=== PATIENT | female | born 1995 | race Caucasian/White ===

== ENCOUNTER 2023-02-01 09:49 | Inpatient (IN) ==
--- NOTE | 2023-02-01 09:54 | Labor Progress Brief Note ---
Date of Service February 01, 2023 Subjective Pt with c/o ctx Q4min, painful. No ROM, no VB, good FM. Assessment & Plan (1) Normal labor: Coding Diagnoses Normal labor O80; Z37.9
[2023-02-01] MEDS ORDERED: LIDOCAINE 1% LOCAL 20 ML VIAL INFIL PRN (12:42)
--- NOTE | 2023-02-01 12:50 | History & Physical Report ---
Date of Service February 01, 2023 Assessment & Plan (1) Normal labor: Plan: Jeni is a 27-year-old currently at 39 weeks 1 day gestational age. Early labor. 1. Fetus: Cat 1 2. Labor: Progressing. Admit and will AROM when appropriate 3. GBS negative 4. Vitals within normal limits (2) with 39 completed weeks gestation: History of Present Illness Primary Care Provider: Enriqueta Arreola DO Jeni is a 27-year-old currently at 39 weeks 1 day gestational age. Presents in early labor. Patient denying vaginal bleeding or leakage of fluid. Reporting normal movement. has been uncomplicated to date. OB Labs: Blood Type O Positive 07/17/22 Antibody Screen NEGATIVE 07/17/22 Hemoglobin 9.9 g/dl (12.0-16.0) L 11/20/22 Hematocrit 29.2 % (37.0-47.0) L 11/20/22 Mean Corpuscular Volume 81.6 fL (80.0-100.0) 07/17/22 Platelet Count 258 K/uL (130-400) 07/17/22 Rubella IgG Antibody Immune (Immune) 07/17/22 Rapid Plasma Reagin Nonreactive (Nonreactive) 07/17/22 Hepatitis B Surface Antigen. NON-REACTIVE (NON-REACTIVE) 07/17/22 Hepatitis C Antibody (EIA) NON-REACTIVE (NON-REACTIVE) 07/17/22 HIV (1&2) Ag and Ab Confirmation NON-REACTIVE (NON-REACTIVE) 07/17/22 Glucose 1 Hour 50 gm Load 108 mg/dl (70-130) 11/20/22 OB Optional Labs: Chlamydia trachomatis RNA Not Detected (NotDetected) 07/17/22 Neisseria gonorrhoeae RNA Not Detected (NotDetected) 07/17/22 Thyroid Stimulating Hormone (TSH) 2.330 uIu/ml (0.300-4.500) 04/25/20 Labs Reviewed: cf/sma declines--smp cfDNA low risk--smp declines afp Allergies Allergy/AdvReac Type Severity Reaction Status Date / Time amoxicillin Allergy hives Verified 02/01/23 10:04 Home Medications Medication Instructions Recorded Confirmed Type docusate sodium 50 mg capsule 50 mg PO DAILY 01/31/23 02/01/23 History escitalopram oxalate 20 mg tablet 20 mg PO DAILY 01/31/23 02/01/23 History (Lexapro) vits no.124-ferrous fum 1 tab PO DAILY 01/31/23 02/01/23 History 27 mg iron-folic acid 800 mcg tablet ( Vitamin) ferrous sulfate 325 mg (65 mg 325 mg PO DAILY 02/01/23 02/01/23 History iron) tablet (iron) Patient History Medical History Anxiety Depression Surgical History [place] teeth extracted (~2012) Family History Grandmother (Paternal) Diabetes Father Cancer Mother Thyroid disease Social History (Updated 07/06/22 @ 17:12 by Halima Quinn) Smoking Status: Never smoker Do You Dip or Chew Tobacco: No; Hx Alcohol Use: No Hx Substance Use: No Preferred Language: Fijian Communication Ability: Effective Oyster Farmer Required: No Beliefs That Will Affect Care: None marital status: marital status details: William (27) [phone] Current Living Situation: Spouse Current Living Situation Comment: lives with spouse, 3 dogs. current occupational status: employed current occupation: [employer] How many Children do You have: 0 Feels Safe at Home: Yes Safety Concerns: Feels Safe At This Time Do you think of yourself as: straight/heterosexual Gender Identity: Female Physical Exam Constitutional: WD/WN, vitals as above Genitourinary: normal external appearance Manual OB Exam: + cervical dilation (2.5), + cervical effacement 80% and + station -2 OB Exam Monitor Tracing: + external FHT monitor used, + external uterine monitor used, + category I and + normal FHT variability Results & Data Vital Signs (Past 12 Hours) Vital Signs Temp Pulse Resp BP 02/01/23 10:10 36.9 C 76 18 117/66 02/01/23 09:59 76 117/66 Coding Level of Care Code None Diagnoses Normal labor O80; Z37.9 with 39 completed weeks gestation Z3A.39
[2023-02-01] MEDS ORDERED: OXYTOCIN 30 UNITS/500 ML BAG IV PRN ×3 (12:57→23:56)
[2023-02-01 13:14] LABS: Hematocrit (blood only) 36.3 % (37.0-47.0); Hemoglobin 12.4 g/dl (12.0-16.0); Mean Corpuscular Hemoglobin 28.4 pg (25.0-34.0); Mean Corpuscular Hgb Conc 34.2 g/dL (32.0-36.0); Mean Corpuscular Volume 83.1 fL (80.0-100.0); Mean Platelet Volume 11.7 fL (9.4-12.4); Platelet Count 213 K/uL (130-400); RDW Coefficient of Variation 14.1 % (11.5-14.5); RDW Standard Deviation 42.7 fL (36.4-46.3); Red Blood Count 4.37 M/uL (4.20-5.40); White Blood Count 10.28 K/ul (4.8-10.8)
[2023-02-01] MEDS: LACTATED RINGER'S 1,000 ML IV PRN ×2 (13:57→15:26)
--- NOTE | 2023-02-01 14:28 | Anesthesiology Consultation ---
Date of Service February 01, 2023 Assessment & Plan Chart Review Chart Review: Patient NOT seen in Pre Admission Testing and Acceptable Risk for Labor Epidural Consults Requested none ASA ASA2 Proposed Anesthesia Anesthesia Type: Labor Epidural Risk / Benefits Reviewed With: PT / POA / Parent / Guardian, Accepts Plan and Informed Consent Obtained History Height/Weight Height: 5 ft 5 in Weight: 85.275 kg Allergies Allergy/AdvReac Type Severity Reaction Status Date / Time amoxicillin Allergy hives Verified 02/01/23 10:04 Medications Home Medications Medication Instructions Recorded Confirmed Last Taken docusate sodium 50 mg capsule 50 mg PO DAILY 01/31/23 02/01/23 01/23/23 escitalopram oxalate 20 mg tablet 20 mg PO DAILY 01/31/23 02/01/23 02/01/23 06:30 (Lexapro) vits no.124-ferrous fum 1 tab PO DAILY 01/31/23 02/01/23 02/01/23 06:30 27 mg iron-folic acid 800 mcg tablet ( Vitamin) ferrous sulfate 325 mg (65 mg 325 mg PO DAILY 02/01/23 02/01/23 02/01/23 06:30 iron) tablet (iron) Active Medications Generic Name Dose Route Start Last Admin Trade Name Freq PRN Reason Stop Dose Admin Lactated Ringer's 1,000 mls @ 125 mls/hr 02/01/23 12:57 02/01/23 13:57 Lr IV 02/03/23 12:56 999 mls/hr .Q8H PRN Administration L&D Protocol Protocol Past Medical History Medical History Anxiety Depression Exercise / Class Metabolic Activity II 4-5 Yardwork/Stairs/Walk up hill Past Family History Family History Grandmother (Paternal) Diabetes Father Cancer Mother Thyroid disease Past Surgical History Surgical History [place] teeth extracted (~2012) Past Anesthesia History No Hx of Anesthesia Complications and No Family Hx of Anesthesia Complications History of PONV No Hx of PONV and No Hx of Motion Sickness Social History Smoking Status: Never smoker Do You Dip or Chew Tobacco: No Hx Alcohol Use: No Hx Substance Use: No substance use type: does not use Physical Exam Vital Signs Last Vital Signs Temp 36.9 C 02/01/23 10:10 Pulse 76 02/01/23 10:10 Resp 18 02/01/23 10:10 BP 117/66 02/01/23 10:10 ENMT Mouth: no dentition abnormality Thyromental Distance: > or= 3.5 Finger Breadths Mallampati Class: II Neck normal visual inspection Respiratory normal respiratory effort Auscultation: lungs clear to auscultation bilaterally Cardiovascular Rate/Rhythm: regular rate and regular rhythm Psychiatric Orientation: alert Testing Laboratory Results 02/01/23 12:49
[2023-02-01] MEDS ORDERED: ePHEDrine sulfate 50 MG/ML AMP IV PRN (14:29)
[2023-02-01] MEDS ORDERED: ONDANSETRON INJ 2 MG/ML 2 ML VIAL IV PRN (14:29)
[2023-02-01] MEDS ORDERED: diphenhydrAMINE 50 MG/ML VIAL IV PRN (14:29)
[2023-02-01] MEDS ORDERED: NALOXONE HCL 0.4 MG/1 ML VIAL/CARP IV PRN (14:29)
[2023-02-01] MEDS ORDERED: BUPIVACAINE 0.25% PF 30 ML VIAL EPI STA (14:29)
[2023-02-01] MEDS ORDERED: LIDOCAINE 2% MPF LOCAL 5 ML VIAL EPI PRN (14:29)
[2023-02-01] MEDS ORDERED: fentaNYL citrate PF 100 MCG/2 ML VIAL EPI STA (14:29)
[2023-02-01] MEDS ORDERED: LIDOCAINE 2%/EPINEPHRINE 1:200,000 20 ML PF EPI STA (14:29)
[2023-02-01] MEDS ORDERED: SODIUM CHLORIDE 0.9% PF INJ 10 ML VIAL EPI STA (14:29)
[2023-02-01] MEDS ORDERED: NALBUPHINE HCL INJ 10 MG/ML AMP IV PRN (14:29)
[2023-02-01] MEDS ORDERED: SODIUM CHLORIDE 0.9% PF INJ 10 ML VIAL EPI PRN (14:29)
[2023-02-01] MEDS ORDERED: NALOXONE HCL 1 MG in SODIUM CHLORIDE 0.9% 1000ML 1,000 ML IV PRN (14:29)
[2023-02-01] MEDS ORDERED: fentaNYL citrate PF 100 MCG/2 ML VIAL EPI PRN (14:29)
[2023-02-01] MEDS ORDERED: BUPIVACAINE 0.25% PF 30 ML VIAL EPI PRN (14:29)
[2023-02-01] MEDS ORDERED: fentaNYL 2MCG/ML ROPIVACAINE 1.25MG/ML 100 ML BAG EPI PRN (14:29)
[2023-02-01] MEDS ORDERED: ROPIVACAINE 0.5% PF 5 MG/ML 20 ML VIAL EPI PRN (14:29)
[2023-02-01] MEDS ORDERED: BUPIVACAINE 0.25% PF 30 ML VIAL ONE (14:50)
[2023-02-01] MEDS ORDERED: fentaNYL citrate PF 100 MCG/2 ML VIAL ONE (14:50)
[2023-02-01] MEDS ORDERED: SODIUM CHLORIDE 0.9% PF INJ 10 ML VIAL ONE (14:50)
[2023-02-01] MEDS ORDERED: ePHEDrine sulfate 50 MG/ML AMP ONE (14:50)
[2023-02-01] MEDS ORDERED: LIDOCAINE 2%/EPINEPHRINE 1:200,000 20 ML PF ONE (14:50)
[2023-02-01] MEDS ORDERED: fentaNYL 2MCG/ML ROPIVACAINE 1.25MG/ML 100 ML BAG EPI ONE (14:51)
--- NOTE | 2023-02-01 15:25 | Labor Progress Brief Note ---
Date of Service February 01, 2023 Subjective Reason For Note: Routine Evaluation Assessment & Plan (1) Normal labor: Plan: Jeni is a 27-year-old currently at 39 weeks 1 day gestational age. Early labor. 1. Fetus: Cat 1 2. Labor: Progressing. AROM clr 3. GBS negative 4. Vitals within normal limits (2) with 39 completed weeks gestation: Admission and Anticipated Discharge Date Admission Date: February 01, 2023 Physical Exam Genitourinary: Manual OB Exam: + cervical dilation (3.5), + cervical effacement 80%, + station -2 and + amniotic fluid clear OB Exam Monitor Tracing: + external FHT monitor used, + external uterine monitor used, + category I and + normal FHT variability Results & Data Vital Signs (Past 12 Hours) Vital Signs Temp Pulse Resp BP Pulse Ox 02/01/23 10:10 36.9 C 76 18 117/66 02/01/23 15:19 100 02/01/23 15:19 79 02/01/23 15:14 100 02/01/23 15:14 68 02/01/23 15:09 100 02/01/23 15:09 66 02/01/23 15:09 99/58 L 02/01/23 15:08 64 02/01/23 15:08 99/58 L 02/01/23 15:06 66 02/01/23 15:06 99/57 L 02/01/23 15:04 100 02/01/23 15:04 71 02/01/23 15:04 98/54 L 02/01/23 15:02 66 02/01/23 15:02 103/59 L 02/01/23 15:00 66 02/01/23 15:00 98/59 L 02/01/23 14:59 100 02/01/23 14:59 68 02/01/23 14:58 66 02/01/23 14:58 98/60 L 02/01/23 14:57 65 02/01/23 14:57 95/58 L 02/01/23 14:56 71 02/01/23 14:56 89/53 L 02/01/23 14:55 84 L 02/01/23 14:55 70 02/01/23 14:54 100 02/01/23 14:54 71 02/01/23 14:54 116/74 02/01/23 14:52 66 02/01/23 14:52 109/71 02/01/23 14:50 65 02/01/23 14:50 122/68 02/01/23 14:49 100 02/01/23 14:49 77 02/01/23 14:48 76 02/01/23 14:48 117/78 02/01/23 14:46 67 02/01/23 14:46 112/77 02/01/23 14:44 100 02/01/23 14:44 65 02/01/23 14:44 66 02/01/23 14:44 123/81 02/01/23 14:42 58 L 02/01/23 14:42 120/80 02/01/23 14:40 66 02/01/23 14:40 122/70 02/01/23 14:39 100 02/01/23 14:39 60 02/01/23 14:38 58 L 02/01/23 14:38 139/80 02/01/23 14:35 93 02/01/23 14:35 76 02/01/23 14:34 99 02/01/23 14:34 55 L 02/01/23 14:34 123/78 02/01/23 09:59 76 117/66 Coding Level of Care Code None Diagnoses Normal labor O80; Z37.9 with 39 completed weeks gestation Z3A.39
--- NOTE | 2023-02-01 22:37 | Delivery Summary ---
Vaginal Delivery Summary Date of Service February 01, 2023 Vaginal Delivery Summary DIAGNOSES: 1. Hicks intrauterine at 39w1d gestation. 2. Spontaneous onset of labor. 3. Group B Streptococcus Neg. PROCEDURE: Spontaneous vaginal delivery without laceration. SURGEON: Manju Dunne MD. MILK OF LIME SLAKER: None. ESTIMATED BLOOD LOSS: 250 mL. COMPLICATIONS: None. PLACENTA: Spontaneous and intact with a 3-vessel cord. DISPOSITION: Stable to labor and delivery. DESCRIPTION: The patient pushed well and brought the head to in DOA position. The infant's head was allowed to deliver with contraction force and no further active pushing, with the perineum protected during this time. There was no nuchal cord. The left shoulder was anterior. The shoulders and body delivered without any difficulty, and the infant was placed on the maternal abdomen. It was vigorous and moving all extremities, and making respiratory efforts. The cord was doubly clamped by the MD and then cut by the FOB. The placenta delivered spontaneously and was noted to be intact and with a 3VC. The cervix, vagina and perineum were examined and were found to have an abrasion in the posterior L vagina which was hemostatic, and a [id number] hematoma in the L labium which was observed over several minutes and did not further enlarge; no suture repair was indicated or performed. The bladder was emptied of urine via straight cath for a large unmeasured quantity of clear yellow urine. The fundus was firm and lochia minimal immediately after delivery. [facility] Vaginal Delivery Charge Vaginal Delivery Codes: 04890 global code for the antepartum, delivery, and post-
--- NOTE | 2023-02-01 23:33 | Anesthesia Procedure Note ---
Date of Service February 01, 2023 Anesthesia Post Epidural Note Vital Signs Vital Signs: Temp Pulse Resp BP Pulse Ox 37.1 C 86 18 125/65 88 L 02/01/23 21:24 02/01/23 23:20 02/01/23 21:24 02/01/23 23:20 02/01/23 22:34 Pain Intensity Abdomen: Pain Intensity: 8 Notes Mental Status: alert / awake / arousable Nausea / Vomiting: adequately controlled Pain: adequately controlled Airway Patency, RR, SpO2: stable & adequate BP & HR: stable & adequate Hydration State: stable & adequate Neuraxial Anesthesia: was administered and sensory block is resolving Anesthetic Complications: no major complications apparent and Pt Satisfied with anesthetic care Epidural: Removed without complications and With tip intact
[2023-02-01] MEDS ORDERED: BENZOCAINE 20% AER SPR 82.5 GM CAN EXT PRN (23:56)
[2023-02-01] MEDS ORDERED: ACETAMINOPHEN 325 MG TAB PO PRN (23:56)
[2023-02-01] MEDS ORDERED: oxyCODONE/ACETAMINOPHEN 5mg/325mg TAB PO PRN (23:56)
[2023-02-01] MEDS ORDERED: DIPHTHERIA/TETANUS/PERTUSSIS Vaccine (Tdap, Age 7+yrs) 0.5mL SYR/VL IM ONE (23:56)
[2023-02-01] MEDS ORDERED: bisacodyL 10 MG SUPP PR PRN (23:56)
[2023-02-01] MEDS ORDERED: HYDROCORTISONE ACETATE 25 MG SUPP PR PRN (23:56)
[2023-02-02 06:15] LABS: Hematocrit (blood only) 34.4 % (37.0-47.0); Hemoglobin 11.5 g/dl (12.0-16.0); Mean Corpuscular Hemoglobin 28.3 pg (25.0-34.0); Mean Corpuscular Hgb Conc 33.4 g/dL (32.0-36.0); Mean Corpuscular Volume 84.5 fL (80.0-100.0); Mean Platelet Volume 11.8 fL (9.4-12.4); Platelet Count 213 K/uL (130-400); RDW Coefficient of Variation 14.1 % (11.5-14.5); RDW Standard Deviation 43.4 fL (36.4-46.3); Red Blood Count 4.07 M/uL (4.20-5.40)
--- NOTE | 2023-02-02 06:23 | Obstetrical Progress Note ---
Date of Service <Mary Huff MD - Last Filed: 02/02/23 06:54> February 02, 2023 Assessment & Plan <Mary Huff MD - Last Filed: 02/02/23 06:54> (1) Spontaneous vaginal delivery: Patient with the above mentioned history and findings was evaluated at bedside and found awake, alert, oriented in all spheres, afebrile, and in no acute distress. Overall, patient is doing well clinically and progressing well. Will continue current post care. Will encourage ambulation as tolerated and will resume regular diet. Will continue monitoring pain levels and management with current regimen. Patient is encouraged to breastfeed and to notify changes in normal lochia such as excessive bleeding (using more than 1 pad per hour), foul smell, or purulent appearance. Should she remain clinically and hemodynamically stable, will consider discharge tomorrow. All questions were answered. <Manju Dunne MD - Last Filed: 02/04/23 15:53> (1) Spontaneous vaginal delivery: Subjective <Mary Huff MD - Last Filed: 02/02/23 06:54> Jeni is a 27 y/o female who is now PPD # 1 following at 39 1/7 weeks. Reports feeling well overall this morning. Refers mild abdominal cramping & 2/10 pain well managed on analgesics. Voiding spontaneously without issues. Tolerating meals overnight and able to ambulate some.She is passing gas but has not had a bowel movement yet. Some persistent lochia with some improvement this morning. Breast feeding. Blood type is O positive and Hb today is 11.5. She is GBS negative and Rubella immune. Constitutional: no fever, no chills or no sweats Denies shortness of breath or difficulty breathing Cardiovascular: no chest pain or no palpitations Breast: no breast pain Genitourinary (female): no dysuria Neurologic: no headache(s) Denies changes in vision Physical Exam <Mary Huff MD - Last Filed: 02/02/23 06:54> General: Alert. Oriented to person, time, and place. Afebrile. No acute distress. Eyes: pupils equal and reactive to light bilaterally, extraocular movements intact. Cardiac: Regular rate and rhythm, no murmurs/rubs/gallops. Respiratory: Clear to auscultation bilaterally a/p, no wheezes/rales/rhonchi. No increased work of breathing. Symmetrical chest rise. No respiratory distress. Abdomen: Soft, nontender, nondistended. Bowel sounds present. Uterus: Uterine fundus firm, mildly tender, and palpable 1 cm below umbilicus. Lower Extremities: mild bilateral lower extremity swelling. No deep calf pain. Navjot's negative bilaterally. Psych: Euthymic affect. Mood and affect congruence. Regular speech rate and content. Results & Data <Mary Huff MD - Last Filed: 02/02/23 06:54> Vital Signs (Past 12 Hours) Vital Signs Temp Pulse Pulse Resp BP BP Pulse Ox 02/02/23 04:15 36.6 C 58 L 16 103/65 97 02/02/23 00:45 36.6 C 73 16 114/73 97 02/02/23 00:35 18 02/02/23 00:05 18 02/01/23 23:35 18 02/01/23 23:20 18 02/01/23 23:05 18 02/01/23 22:50 18 02/01/23 22:35 18 02/02/23 00:32 65 102/57 L 02/02/23 00:20 68 93/54 L 02/02/23 00:05 68 103/53 L 02/01/23 23:50 73 02/01/23 23:50 113/55 L 02/01/23 23:35 82 02/01/23 23:35 117/58 L 02/01/23 23:20 86 02/01/23 23:20 125/65 02/01/23 23:05 72 02/01/23 23:05 116/58 L 02/01/23 22:58 78 02/01/23 22:58 124/68 02/01/23 22:35 86 02/01/23 22:35 128/65 02/01/23 22:34 88 L 02/01/23 22:34 30 L 02/01/23 22:29 100 02/01/23 22:29 102 H 02/01/23 22:24 99 02/01/23 22:24 89 02/01/23 22:19 100 02/01/23 22:19 94 H 02/01/23 22:18 93 02/01/23 22:18 107 H 02/01/23 22:14 84 L 02/01/23 22:14 108 H 02/01/23 22:13 92 02/01/23 22:13 86 02/01/23 22:09 93 02/01/23 22:09 112 H 02/01/23 22:07 86 L 02/01/23 22:07 102 H 02/01/23 22:04 100 02/01/23 22:04 100 H 02/01/23 22:01 89 L 02/01/23 22:01 89 02/01/23 21:59 100 02/01/23 21:59 93 H 02/01/23 21:56 88 L 02/01/23 21:56 109 H 02/01/23 21:54 60 L 02/01/23 21:54 108 H 02/01/23 21:51 89 L 02/01/23 21:51 97 H 02/01/23 21:49 99 02/01/23 21:49 96 H 02/01/23 21:44 77 L 02/01/23 21:44 122 H 02/01/23 21:40 118 H 02/01/23 21:40 142/99 H 02/01/23 21:39 89 L 02/01/23 21:39 112 H 02/01/23 21:34 100 02/01/23 21:34 110 H 02/01/23 21:29 95 02/01/23 21:29 76 02/01/23 21:24 18 02/01/23 21:24 37.1 C 18 02/01/23 21:25 70 02/01/23 21:25 131/76 02/01/23 21:24 100 02/01/23 21:24 74 02/01/23 21:19 100 02/01/23 21:19 80 02/01/23 21:14 99 02/01/23 21:14 71 02/01/23 21:13 93 02/01/23 21:13 65 02/01/23 21:11 70 02/01/23 21:11 127/79 02/01/23 21:09 100 02/01/23 21:09 62 02/01/23 21:04 100 02/01/23 21:04 84 02/01/23 21:02 92 02/01/23 21:02 101 H 02/01/23 20:59 100 02/01/23 20:59 71 02/01/23 20:56 67 02/01/23 20:56 112/65 02/01/23 20:54 100 02/01/23 20:54 68 02/01/23 20:49 100 02/01/23 20:49 68 02/01/23 20:44 100 02/01/23 20:44 67 02/01/23 20:41 73 02/01/23 20:41 120/66 02/01/23 20:39 100 02/01/23 20:39 67 02/01/23 20:34 100 02/01/23 20:34 71 02/01/23 20:29 100 02/01/23 20:29 71 02/01/23 20:24 100 02/01/23 20:24 68 02/01/23 20:24 125/64 02/01/23 20:19 100 02/01/23 20:20 92 02/01/23 20:19 67 02/01/23 20:20 71 02/01/23 20:14 100 02/01/23 20:14 67 02/01/23 20:11 68 02/01/23 20:11 115/70 02/01/23 20:09 100 02/01/23 20:09 69 02/01/23 20:04 100 02/01/23 20:04 70 02/01/23 19:59 100 02/01/23 19:59 71 02/01/23 19:56 71 02/01/23 19:56 117/74 02/01/23 19:54 100 02/01/23 19:55 90 02/01/23 19:54 66 02/01/23 19:55 74 02/01/23 19:49 100 02/01/23 19:49 76 02/01/23 19:44 100 02/01/23 19:44 90 02/01/23 19:41 93 02/01/23 19:41 100 H 02/01/23 19:40 68 02/01/23 19:40 125/87 02/01/23 19:39 99 02/01/23 19:39 86 02/01/23 19:34 100 02/01/23 19:34 71 02/01/23 19:29 100 02/01/23 19:29 68 02/01/23 19:25 70 02/01/23 19:25 126/82 02/01/23 19:24 98 02/01/23 19:24 69 02/01/23 19:19 97 02/01/23 19:19 75 02/01/23 19:14 100 02/01/23 19:14 67 02/01/23 19:09 100 02/01/23 19:09 72 02/01/23 19:09 124/76 02/01/23 19:04 99 02/01/23 19:04 70 02/01/23 19:02 91 02/01/23 19:02 76 02/01/23 19:00 18 02/01/23 19:00 36.9 C 18 02/01/23 18:59 100 02/01/23 18:59 79 02/01/23 18:54 99 02/01/23 18:54 69 02/01/23 18:55 66 02/01/23 18:55 121/76 02/01/23 18:49 100 02/01/23 18:49 69 02/01/23 18:44 100 02/01/23 18:44 76 02/01/23 18:39 100 02/01/23 18:39 72 02/01/23 18:39 113/75 02/01/23 18:34 100 02/01/23 18:34 64 02/01/23 18:31 18 02/01/23 18:31 18 02/01/23 18:29 89 L 02/01/23 18:29 69 02/01/23 18:24 100 02/01/23 18:24 67 02/01/23 18:24 114/74 O2 Del Method 02/02/23 04:15 Room Air 02/02/23 00:45 Room Air 02/02/23 00:35 02/02/23 00:05 02/01/23 23:35 02/01/23 23:20 02/01/23 23:05 02/01/23 22:50 02/01/23 22:35 02/02/23 00:32 02/02/23 00:20 02/02/23 00:05 02/01/23 23:50 02/01/23 23:50 02/01/23 23:35 02/01/23 23:35 02/01/23 23:20 02/01/23 23:20 02/01/23 23:05 02/01/23 23:05 02/01/23 22:58 02/01/23 22:58 02/01/23 22:35 02/01/23 22:35 02/01/23 22:34 02/01/23 22:34 02/01/23 22:29 02/01/23 22:29 02/01/23 22:24 02/01/23 22:24 02/01/23 22:19 02/01/23 22:19 02/01/23 22:18 02/01/23 22:18 02/01/23 22:14 02/01/23 22:14 02/01/23 22:13 02/01/23 22:13 02/01/23 22:09 02/01/23 22:09 02/01/23 22:07 02/01/23 22:07 02/01/23 22:04 02/01/23 22:04 02/01/23 22:01 02/01/23 22:01 02/01/23 21:59 02/01/23 21:59 02/01/23 21:56 02/01/23 21:56 02/01/23 21:54 02/01/23 21:54 02/01/23 21:51 02/01/23 21:51 02/01/23 21:49 02/01/23 21:49 02/01/23 21:44 02/01/23 21:44 02/01/23 21:40 02/01/23 21:40 02/01/23 21:39 02/01/23 21:39 02/01/23 21:34 02/01/23 21:34 02/01/23 21:29 02/01/23 21:29 02/01/23 21:24 02/01/23 21:24 02/01/23 21:25 02/01/23 21:25 02/01/23 21:24 02/01/23 21:24 02/01/23 21:19 02/01/23 21:19 02/01/23 21:14 02/01/23 21:14 02/01/23 21:13 02/01/23 21:13 02/01/23 21:11 02/01/23 21:11 02/01/23 21:09 02/01/23 21:09 02/01/23 21:04 02/01/23 21:04 02/01/23 21:02 02/01/23 21:02 02/01/23 20:59 02/01/23 20:59 02/01/23 20:56 02/01/23 20:56 02/01/23 20:54 02/01/23 20:54 02/01/23 20:49 02/01/23 20:49 02/01/23 20:44 02/01/23 20:44 02/01/23 20:41 02/01/23 20:41 02/01/23 20:39 02/01/23 20:39 02/01/23 20:34 02/01/23 20:34 02/01/23 20:29 02/01/23 20:29 02/01/23 20:24 02/01/23 20:24 02/01/23 20:24 02/01/23 20:19 02/01/23 20:20 02/01/23 20:19 02/01/23 20:20 02/01/23 20:14 02/01/23 20:14 02/01/23 20:11 02/01/23 20:11 02/01/23 20:09 02/01/23 20:09 02/01/23 20:04 02/01/23 20:04 02/01/23 19:59 02/01/23 19:59 02/01/23 19:56 02/01/23 19:56 02/01/23 19:54 02/01/23 19:55 02/01/23 19:54 02/01/23 19:55 02/01/23 19:49 02/01/23 19:49 02/01/23 19:44 02/01/23 19:44 02/01/23 19:41 02/01/23 19:41 02/01/23 19:40 02/01/23 19:40 02/01/23 19:39 02/01/23 19:39 02/01/23 19:34 02/01/23 19:34 02/01/23 19:29 02/01/23 19:29 02/01/23 19:25 02/01/23 19:25 02/01/23 19:24 02/01/23 19:24 02/01/23 19:19 02/01/23 19:19 02/01/23 19:14 02/01/23 19:14 02/01/23 19:09 02/01/23 19:09 02/01/23 19:09 02/01/23 19:04 02/01/23 19:04 02/01/23 19:02 02/01/23 19:02 02/01/23 19:00 02/01/23 19:00 02/01/23 18:59 02/01/23 18:59 02/01/23 18:54 02/01/23 18:54 02/01/23 18:55 02/01/23 18:55 02/01/23 18:49 02/01/23 18:49 02/01/23 18:44 02/01/23 18:44 02/01/23 18:39 02/01/23 18:39 02/01/23 18:39 02/01/23 18:34 02/01/23 18:34 02/01/23 18:31 02/01/23 18:31 02/01/23 18:29 02/01/23 18:29 02/01/23 18:24 02/01/23 18:24 02/01/23 18:24 <Manju Dunne MD - Last Filed: 02/04/23 15:53> Co-Signing Physician Notes Resident Physician Supervision Note: I interviewed and examined the patient. Discussed with Dr. Huff and agree with findings and plan as documented in the note. Any exceptions or clarifications are listed here: [ ] Documented By: Manju Dunne MD, FACOG Resident Activity Tracking <Mary Huff MD - Last Filed: 02/02/23 06:54> Resident Involvement: Resident Care Provided Care Provided: OB Delivery
[2023-02-02] MEDS: ESCITALOPRAM OXALATE 20 MG TAB PO SCH (07:47)
[2023-02-02] MEDS: DOCUSATE SODIUM 100 MG CAP PO SCH ×2 (07:47→21:15)
[2023-02-02] MEDS: PRENATAL VITAMIN 1 TAB PO SCH (07:47)
[2023-02-02] MEDS: IBUPROFEN 600 MG TAB PO PRN ×2 (11:36→22:59)
[2023-02-02] MEDS ORDERED: bisacodyL 5 MG TABEC PO SCH (20:00)
[2023-02-03 05:57] LABS: Hematocrit (blood only) 32.3 % (37.0-47.0); Hemoglobin 10.6 g/dl (12.0-16.0)
[2023-02-03] MEDS: PRENATAL VITAMIN 1 TAB PO SCH (07:54)
[2023-02-03] MEDS: IBUPROFEN 600 MG TAB PO PRN (07:54)
[2023-02-03] MEDS: DOCUSATE SODIUM 100 MG CAP PO SCH (07:54)
[2023-02-03] MEDS: ESCITALOPRAM OXALATE 20 MG TAB PO SCH (07:55)
--- NOTE | 2023-02-03 09:49 | Obstetrical Progress Note ---
Date of Service February 03, 2023 Assessment & Plan (1) Encounter for care and examination after delivery: Plan Day 2 status post vaginal delivery. Doing well. Stable for discharge Subjective Ambulation: ambulating normally Voiding: no voiding problems Passing Gas:: Yes Diet Tolerance:: regular diet Lochia:: Moderate Feeding Type:: breast feeding Physical Exam Constitutional WD/WN, vitals as above Respiratory normal respiratory effort; no respiratory distress and no labored breathing Gastrointestinal (Abdomen) Inspection/Auscultation: abdomen normal to inspection; abdomen not distended Percussion/Palpation: abdomen soft; abdomen nontender, no guarding and abdomen not rigid Genitourinary OB Exam Abdomen: + fundal height Fundus: + firm and + relation to umbilicus (Below); not tender or not boggy Results & Data Vital Signs (Past 12 Hours) Vital Signs Temp Pulse Resp BP Pulse Ox O2 Del Method 02/03/23 08:00 36.5 C 66 18 114/77 99 Room Air 02/02/23 23:00 36.5 C 85 18 124/80 99 Room Air
== END 2023-02-03 10:58 | disposition home or self-care (01) | DRG 807 ==
LOC: OPB 09:49 → 4S1 09:50 → 4E2 02-02 01:24

== ENCOUNTER 2025-03-21 01:28 | Inpatient (IN) ==
[2025-03-21] MEDS ORDERED: LIDOCAINE 1% LOCAL 20 ML VIAL INFIL PRN (03:19)
[2025-03-21 03:48] LABS: Hematocrit (blood only) 38.0 % (37.0-47.0); Hemoglobin 12.5 g/dl (12.0-16.0); Mean Corpuscular Hemoglobin 27.0 pg (25.0-34.0); Mean Corpuscular Volume 82.1 fL (80.0-100.0); Platelet Count 189 K/uL (130-400); RDW Standard Deviation 41.9 fL (36.4-46.3); Red Blood Count 4.63 M/uL (4.20-5.40); White Blood Count 9.06 K/ul (4.8-10.8)
[2025-03-21] MEDS: LACTATED RINGER'S 1,000 ML IV PRN (03:49)
[2025-03-21] MEDS ORDERED: NALOXONE HCL 0.4 MG/1 ML VIAL/CARP IV PRN (04:21)
[2025-03-21] MEDS ORDERED: BUPIVACAINE 0.25% PF 30 ML VIAL EPI PRN (04:21)
[2025-03-21] MEDS ORDERED: NALOXONE HCL 1 MG in SODIUM CHLORIDE 0.9% 1,000 ML IV PRN (04:21)
[2025-03-21] MEDS ORDERED: ONDANSETRON INJ 2 MG/ML 2 ML VIAL IV PRN (04:21)
[2025-03-21] MEDS ORDERED: LIDOCAINE 2% MPF LOCAL 5 ML VIAL EPI PRN (04:21)
[2025-03-21] MEDS ORDERED: fentANYL 2 MCG/ML BUPIVacaine 0.125%-NSS 100ML BAG EPI PRN (04:21)
[2025-03-21] MEDS ORDERED: NALBUPHINE HCL INJ 10 MG/ML AMP IV PRN (04:21)
[2025-03-21] MEDS ORDERED: ROPIVACAINE 0.5% PF 5 MG/ML 20 ML VIAL EPI PRN (04:21)
[2025-03-21] MEDS ORDERED: diphenhydrAMINE 50 MG/ML VIAL IV PRN (04:21)
[2025-03-21] MEDS ORDERED: SODIUM CHLORIDE 0.9% PF INJ 10 ML VIAL EPI PRN (04:21)
--- NOTE | 2025-03-21 04:21 | Anesthesiology Consultation ---
Date of Service March 21, 2025 Assessment & Plan ASA ASA2 Proposed Anesthesia Anesthesia Type: Labor Epidural Risk / Benefits Reviewed With: PT / POA / Parent / Guardian, Accepts Plan and Informed Consent Obtained History Height/Weight Height: 5 ft 5 in Weight: 80.286 kg Allergies Allergy/AdvReac Type Severity Reaction Status Date / Time amoxicillin Allergy Intermediate Hives Verified 03/18/25 10:51 Medications Home Medications Medication Instructions Recorded Confirmed Last Taken vits no.124-ferrous fum 1 tab PO DAILY 01/31/23 03/21/25 03/20/25 08:00 27 mg iron-folic acid 800 mcg tablet ( Vitamin) albuterol sulfate 90 mcg/actuation See Rx Instructions inhalation 07/11/23 03/21/25 Unknown aerosol inhaler (Ventolin HFA) .COMPLEX PRN shortness of breath or wheezing #8.5 grams docosahexaenoic acid 300 mg 300 mg PO QPM 09/22/24 03/18/25 09/21/24 capsule (DHA Algal-900) levothyroxine 50 mcg tablet 50 mcg PO DAILYBB #30 tabs 10/19/24 03/21/25 03/20/25 07:00 ferrous sulfate [Iron (ferrous PO DAILY 01/19/25 03/18/25 Unknown sulfate)] escitalopram oxalate 10 mg tablet 15 mg (1.5 x 10 mg) PO DAILY #45 02/03/25 03/18/25 03/20/25 07:00 (Lexapro) tabs ondansetron HCl 4 mg tablet 4 mg PO Q6H PRN nausea and 02/03/25 03/18/25 Unknown vomiting #20 tabs Active Medications Generic Name Dose Route Start Last Admin Trade Name Freq PRN Reason Stop Dose Admin Lactated Ringer's 1,000 mls @ 125 mls/hr 03/21/25 03:19 03/21/25 04:37 Lr IV 03/23/25 03:18 125 mls/hr .Q8H PRN Infusion L&D Protocol Protocol Past Medical History Medical History History of chicken pox Bilateral conjunctivitis Sinusitis Headache Irregular menses Depression Anxiety Dysmenorrhea Migraines Exercise / Class Metabolic Activity II 4-5 Yardwork/Stairs/Walk up hill Past Family History Family History Grandmother (Paternal) Diabetes Father Cancer bone and skin cancer Lung cancer Mother Thyroid disease Grandmother (Maternal) Breast cancer Denies family history of Ovarian cancer Colorectal cancer Past Surgical History Surgical History [place] teeth extracted (~2012) Past Anesthesia History No Hx of Anesthesia Complications and No Family Hx of Anesthesia Complications History of PONV No Hx of PONV and No Hx of Motion Sickness Social History Smoking Status: Never smoker Do You Dip or Chew Tobacco: No Hx Alcohol Use: No Hx Substance Use: No substance use type: does not use Review of Systems denies fever/cough/ colds/ chest pain/ SOB/ JOSÉ MIGUEL denies JOSÉ MIGUEL Physical Exam Vital Signs Last Vital Signs Temp 36.7 C 03/21/25 01:48 Pulse 61 03/21/25 04:52 Resp 18 03/21/25 01:48 BP 112/64 03/21/25 04:52 Pulse Ox 100 03/21/25 04:50 ENMT Mouth: no TMJ abnormality and no dentition abnormality Thyromental Distance: > or= 3.5 Finger Breadths Mallampati Class: II Neck neck extension not limited Respiratory normal respiratory effort; no respiratory distress Auscultation: lungs clear to auscultation bilaterally Cardiovascular Rate/Rhythm: regular rate and regular rhythm Neurologic moves all extremities Psychiatric Orientation: alert and oriented x 3 Testing Laboratory Results 03/21/25 03:33
[2025-03-21] MEDS: BUPIVACAINE 0.25% PF 30 ML VIAL ONE (04:45)
[2025-03-21] MEDS: LIDOCAINE 2%/EPINEPHRINE 1:200,000 20 ML PF ONE (04:45)
[2025-03-21] MEDS: fentANYL 2 MCG/ML BUPIVacaine 0.125%-NSS 100ML BAG ONE (04:46)
[2025-03-21] MEDS: OXYTOCIN 30 UNITS/NSS 30 UNITS/500 ML BAG IV PRN (10:25)
[2025-03-21] MEDS ORDERED: IBUPROFEN 600 MG TAB PO PRN (10:39)
[2025-03-21] MEDS ORDERED: HYDROCORTISONE ACETATE 25 MG SUPP PR PRN (10:39)
[2025-03-21] MEDS ORDERED: OXYTOCIN 30 UNITS/NSS 30 UNITS/500 ML BAG IV PRN (10:39)
--- NOTE | 2025-03-21 11:08 | Delivery Summary ---
Vaginal Delivery Summary Date of Service March 21, 2025 Vaginal Delivery Summary and 1st Degree LAC Progressed to 10 cm dilated, 100% effaced, +2-3 station and pushed over intact perineum with epidural anesthesia delivered a viable female with weight and Apgars pending. Head of the delivered without difficulty quickly followed by shoulders and body. was noted be vigorous soon after delivery and a 1 minute delayed cord clamping was initiated. Cord was then double clamped and cut and remained on maternal abdomen. Cord blood obtained and attention turned to delivery of placenta which delivered intact with three-vessel cord gentle cord traction. Inspection of perineum vagina and cervix there is noted to be a periurethral laceration which was repaired with a single interrupted stitch of 4-0 Vicryl. Needle sponge and instrument counts correct at the completion of the case. Both mother and stable in the immediate postdelivery timeframe. No complications noted and blood loss per QBL. [facility] Vaginal Delivery Charge Delivery Type Details: and 1st Degree LAC
[2025-03-21] MEDS: SODIUM CHLORIDE 0.9% PF INJ 10 ML VIAL ONE (11:34)
[2025-03-21] MEDS: BUPIVACAINE 0.25% PF 30 ML VIAL EPI STA (11:35)
[2025-03-21] MEDS: LIDOCAINE 2%/EPINEPHRINE 1:200,000 20 ML PF EPI STA (11:35)
[2025-03-21] MEDS: SODIUM CHLORIDE 0.9% PF INJ 10 ML VIAL EPI STA (11:35)
[2025-03-21] MEDS: DIPHTHER/TETAN/PERTUS Vaccine (Tdap, Adol/Adult) 0.5mL IM ONE (13:19)
--- NOTE | 2025-03-21 15:44 | Anesthesia Procedure Note ---
Date of Service March 21, 2025 Anesthesia Post Epidural Note Vital Signs Vital Signs: Temp Pulse Resp BP Pulse Ox O2 Del Method 36.6 C 52 L 18 108/67 98 Room Air 03/21/25 14:45 03/21/25 14:45 03/21/25 14:45 03/21/25 14:45 03/21/25 11:26 03/21/25 14:45 Pain Intensity Abdomen: Pain Intensity: 0 Notes Mental Status: alert / awake / arousable Nausea / Vomiting: adequately controlled Pain: adequately controlled Airway Patency, RR, SpO2: stable & adequate BP & HR: stable & adequate Hydration State: stable & adequate Neuraxial Anesthesia: was administered and sensory block is resolving Anesthetic Complications: no major complications apparent and Pt Satisfied with anesthetic care Epidural: Removed without complications and With tip intact
[2025-03-21] MEDS: ACETAMINOPHEN 325 MG TAB PO PRN (19:02)
[2025-03-21] MEDS: BENZOCAINE 20% SPRY 85 APPLN/85 GM CAN EXT PRN (19:06)
[2025-03-21] MEDS: DOCUSATE SODIUM 100 MG CAP PO SCH (20:00)
[2025-03-21 20:40] VITALS: RESP 16
[2025-03-22] MEDS: LEVOTHYROXINE SODIUM 50 MCG TABLET PO SCH (05:37)
[2025-03-22] MEDS ORDERED: ESCITALOPRAM OXALATE 10 MG TAB PO SCH (06:00)
--- NOTE | 2025-03-22 06:17 | Obstetrical Progress Note ---
Date of Service March 22, 2025 Assessment & Plan (1) examination following vaginal delivery: (2) Hypothyroidism during : Plan 29 y/o post- day 1 s/p . Feels well today. Vital signs stable Continue post- care Encourage ambulation and Pain controlled with ibuprofen Hgb stable Discharge home today, follow up with Dr. Eaton in 6 weeks. Admission and Anticipated Discharge Date Admission Date: March 21, 2025 Supervising Physician Co-Signing Physician Notes Patient seen with resident and agree with above findings and plan. Patient doing well and stable for discharge as preferred. Subjective 29 y/o post- day #1 s/p complicated by hypothyroidism during . Ambulation: ambulating normally Voiding: no voiding problems Passing Gas:: Yes Diet Tolerance:: regular diet Lochia:: Small Feeding Type:: breast-feeding Current Pain Level: minimal Resting comfortably this AM in NAD. Denies PARKS, CP, SOB, N/V/D, LE pain/swelling. Review of Systems Review of Systems: All systems reviewed & are unremarkable except as noted in HPI & below Physical Exam Physical Exam: General: patient resting comfortably, NAD, non-toxic in appearance, AA&O x 4, answers questions appropriately. Skin: warm, dry, intact HEENT: NC/AT, anicteric sclera, conjunctiva without injection, moist mucus membranes. Heart: +S1/S2, regular, no m/r/g Lungs: equal air entry bilaterally, no rales/rhonchi/wheezes Abd: +BS, soft, NT/ND, uterine fundus firm at umbilicus Ext: warm, no clubbing/cyanosis or edema, Navjot's neg. Neuro: nonfocal, patient AA&O x 4, speech intact, no facial droop, moving all ex tremities on command. Results & Data Vital Signs (Past 12 Hours) Vital Signs Temp Pulse Resp BP Pulse Ox O2 Del Method 03/22/25 05:00 36.5 C 52 L 16 98/68 L 97 Room Air 03/22/25 00:15 36.4 C L 59 L 16 106/68 99 Room Air 03/21/25 19:05 36.5 C 68 16 108/68 98 Room Air
[2025-03-22] MEDS: PRENATAL VITAMIN 1 TAB PO SCH (07:41)
[2025-03-22] MEDS: FERROUS SULFATE 325 MG TAB PO SCH (07:41)
[2025-03-22 08:08] VITALS: BP 110/76; PULSE 66; TEMP 97.5; O2SAT 98
[2025-03-22] MEDS: ESCITALOPRAM OXALATE 10 MG TAB PO SCH (11:10)
== END 2025-03-22 14:50 | disposition home or self-care (01) | DRG 807 ==
LOC: OPB 01:28 → 4S1 01:31 → 4E2 13:02